=== PATIENT | female | born 1985 | race Caucasian/White ===

== ENCOUNTER 2016-09-18 22:07 | Emergency (ER) | payer BC | END 2016-09-19 00:22 | disposition left against medical advice (07) | LOC: ER1 22:07 | DX: Z53.21 Procedure and treatment not carried out due to patient leaving prior to being seen by health care provider (principal) ==

== ENCOUNTER 2016-09-19 19:00 | Emergency (ER) | payer BC | END 2016-09-19 20:41 | disposition left against medical advice (07) | LOC: ER1 19:00 | DX: Z53.21 Procedure and treatment not carried out due to patient leaving prior to being seen by health care provider (principal) ==

== ENCOUNTER 2021-02-23 15:06 | Emergency (ER) | payer BC ==
[2021-02-23 19:43] LABS: HEMOGLOBIN 11.6 gm/dl (12.3-15.3); RED BLOOD COUNT 4.59 M/UL (4.00-5.10); WHITE BLOOD COUNT 5.5 K/UL (4.5-11.0)
[2021-02-23 20:06] LABS: BUN/CREATININE RATIO 5 (0-10)
[2021-02-23] MEDS ORDERED: IBUPROFEN800 MG PO (20:59)
[2021-02-23] MEDS ORDERED: MUCINEX DM ER1 EACH PO (20:59)
[2021-02-23] MEDS ORDERED: PROAIR HFA8.5 GM INH (20:59)
== END 2021-02-23 21:45 | disposition home or self-care (01) ==
LOC: ER1 15:06
PROVIDERS: Physician Assistant
DX: U07.1 COVID-19 (principal); J20.8 Acute bronchitis due to other specified organisms; Z90.89 Acquired absence of other organs; F17.290 Nicotine dependence, other tobacco product, uncomplicated; Z88.8 Allergy status to other drugs, medicaments and biological substances
CPT/HCPCS: 71045; 80053; 83605; 85025; 86140; 87040; 93005; 99285; U0002

== ENCOUNTER → 2021-06-19 | Outpatient (CLI) | payer BC ==
[~2021-06-19] MED LIST: COLACE100 MG PO; DEXILANT60 MG PO; IBUPROFEN800 MG PO; MUCINEX DM ER1 EACH PO; PERCOCET 5/325 T1 EA PO; PREDNISONE 20 M20 MG PO; PROAIR HFA8.5 GM INH; ROBAXIN 750 MG750 MG PO; VITAMIN D21250 MCG PO; WOMEN'S DAILY1 EAC1 PO
[2021-06-19 10:05] LABS: HEMOGLOBIN 10.7 gm/dl (12.3-15.3); RED BLOOD COUNT 4.25 M/UL (4.00-5.10); WHITE BLOOD COUNT 7.4 K/UL (4.5-11.0)
== END ==
LOC: OPSV2 06-15 09:00
PROVIDERS: Obstetrics & Gynecology
DX: Z01.812 Encounter for preprocedural laboratory examination (principal); N93.9 Abnormal uterine and vaginal bleeding, unspecified
CPT/HCPCS: 36415; 81001; 85025

== ENCOUNTER → 2021-06-21 | Day surgery (SDC) | payer BC | END | disposition home or self-care (01) | LOC: OR 12:15 | DX: R87.613 High grade squamous intraepithelial lesion on cytologic smear of cervix (HGSIL) (principal); R87.612 Low grade squamous intraepithelial lesion on cytologic smear of cervix (LGSIL); N93.9 Abnormal uterine and vaginal bleeding, unspecified; N94.6 Dysmenorrhea, unspecified; R10.2 Pelvic and perineal pain; K21.9 Gastro-esophageal reflux disease without esophagitis; Z88.8 Allergy status to other drugs, medicaments and biological substances; Z79.899 Other long term (current) drug therapy | CPT/HCPCS: 84703; J0690; J1100; J1170; J1885; J2001; J2250; J2405; J2704; J2710; J3010; J7030; J7120 ==

== ENCOUNTER → 2021-08-10 | Outpatient (CLI) | payer BC ==
[~2021-08-10] MED LIST changes: +COSENTYX IM; +IRON325 M1 PO
[2021-08-10 10:17] LABS: HEMOGLOBIN 11.2 gm/dl (12.3-15.3); RED BLOOD COUNT 4.57 M/UL (4.00-5.10); WHITE BLOOD COUNT 6.3 K/UL (4.5-11.0)
== END ==
LOC: OPSV2 09:00
PROVIDERS: Obstetrics & Gynecology
DX: Z01.812 Encounter for preprocedural laboratory examination (principal)
CPT/HCPCS: 36415; 81001; 85025

== ENCOUNTER 2021-08-23 10:26 | Inpatient (IN) | payer BC ==
[~2021-08-23] VITALS: Ht 172.7 cm; Wt 122.5 kg
--- NOTE | 2021-08-23 18:56 | NUR ---
REPORT GIVEN TO KALEN PELAEZ RN
[2021-08-24] MEDS ORDERED: COLACE100 MG PO (17:57)
[2021-08-24] MEDS ORDERED: IBUPROFEN800 MG PO (17:57)
[2021-08-24] MEDS ORDERED: PERCOCET 5/325 T1 EA PO (17:57)
[2021-08-24] MEDS ORDERED: FERGON240 MG PO (17:57)
== END 2021-08-24 19:40 | disposition home or self-care (01) | DRG 740 ==
LOC: OR 10:26 → OB 15:51
PROVIDERS: Obstetrics & Gynecology; ADMIT Obstetrics & Gynecology
PROC: 0DNU0ZZ Release Omentum, Open Approach (ICD-10-PCS; 2021-08-23)
PROC: 0UT70ZZ Resection of Bilateral Fallopian Tubes, Open Approach (ICD-10-PCS; 2021-08-23)
PROC: 0UT90ZZ Resection of Uterus, Open Approach (ICD-10-PCS; principal; 2021-08-23 07:30)
DX: D07.0 Carcinoma in situ of endometrium (principal); Z68.41 Body mass index [BMI] 40.0-44.9, adult; Z20.822 Contact with and (suspected) exposure to COVID-19; N93.9 Abnormal uterine and vaginal bleeding, unspecified; N73.6 Female pelvic peritoneal adhesions (postinfective); E66.9 Obesity, unspecified; D64.9 Anemia, unspecified; L40.9 Psoriasis, unspecified; F41.0 Panic disorder [episodic paroxysmal anxiety]; F41.9 Anxiety disorder, unspecified; F32.A Depression, unspecified; K21.9 Gastro-esophageal reflux disease without esophagitis; Z98.891 History of uterine scar from previous surgery; Z98.890 Other specified postprocedural states; Z88.8 Allergy status to other drugs, medicaments and biological substances; Z80.41 Family history of malignant neoplasm of ovary; Z82.49 Family history of ischemic heart disease and other diseases of the circulatory system; Z87.891 Personal history of nicotine dependence; Z87.440 Personal history of urinary (tract) infections
CPT/HCPCS: 36415; 84702; 85014; 85018; J0690; J1100; J1170; J1885; J2001; J2250; J2405; J2704; J2710; J3010; J7120